=== PATIENT | female | born 1985 ===

== ENCOUNTER 2016-12-17 20:54 | Emergency (ER) | payer SELFPAY ==
[~2016-12-17] VITALS: Ht 162.6 cm; Wt 63.5 kg
[2016-12-17 21:28] VITALS: BP 104/57
--- NOTE | 2016-12-17 23:50 | NUR ---
PATIENT LEFT WITHOUT BEING SEEN BY DR. KAMINSKI. NO FURTHER CARE PROVIDED FOR PATIENT.
== END 2016-12-17 23:50 | disposition left against medical advice (07) ==
LOC: MED 20:54
DX: M79.641 Pain in right hand (principal); Z53.21 Procedure and treatment not carried out due to patient leaving prior to being seen by health care provider